=== PATIENT | male | born 1940 | race Caucasian/White ===

== ENCOUNTER → 2017-06-21 | Outpatient (CLI) | payer MEDICARE ==
[2017-06-21 09:40] LABS: Basophils # (A) 0.1 k/uL (0-0.2); Basophils % (A) 1 %; CH 31.4; CHCM 31.9; Eosinophils # (A) 0.2 k/uL (0-0.7); Eosinophils % (A) 4 %; HCT 51.5 % (39.0-53.0); HDW 2.35; HGB 15.6 gm/dL (13.0-17.5); Luc # (Auto) 0.19; Luc % (Auto) 3; Lymphocytes # (A) 2.3 k/uL (1.0-4.8); Lymphocytes % (A) 37 %; MCH 30.1 pg (25.0-35.0); MCHC 30.4 g/dL (31.0-37.0); Mean Platelet Volume 7.8; Monocytes # (A) 0.5 k/uL (0-1.0); Monocytes % (A) 7 %; Neutrophils % (A) 48 %; RDW 14.9 % (11.5-15.5); WBC 6.3 k/uL (3.8-10.6); WBC (Perox) 6.17
[2017-06-21 09:54] LABS: ALT 33 U/L (21-72); AST 28 U/L (17-59); Alkaline Phosphatase 74 U/L (38-126); Anion Gap 6 mmol/L; Blood Urea Nitrogen 23 mg/dL (9-20); Calcium 9.1 mg/dL (8.4-10.2); Carbon Dioxide 27 mmol/L (22-30); Chloride 109 mmol/L (98-107); Cholesterol 118 mg/dL (<200); Glucose 111 mg/dL (74-99); HDL Cholesterol 46 mg/dL (40-60); Non-African American GFR(MDRD) >60 (>60 ml/min/1.73 sqM); Potassium 4.8 mmol/L (3.5-5.1); Sodium 142 mmol/L (137-145); Total Bilirubin 0.5 mg/dL (0.2-1.3); Total Protein 6.9 g/dL (6.3-8.2)
== END | disposition home or self-care (01) ==
LOC: LABWHC1 09:17
PROVIDERS: ATTEND Internal Medicine
DX: Z00.00 Encounter for general adult medical examination without abnormal findings (principal); E78.5 Hyperlipidemia, unspecified; I10 Essential (primary) hypertension; Z12.5 Encounter for screening for malignant neoplasm of prostate
CPT/HCPCS: 84439; 80061; 80053; 84443; 85025; 36415; G0103

== ENCOUNTER 2018-08-29 09:58 | Emergency (ER) | payer MEDICARE ==
--- NOTE | 2018-08-29 11:38 | XR ---
EXAMINATION TYPE: XR chest 2V DATE OF EXAM: 08/29/2018 COMPARISON: NONE HISTORY: Shortness of breath TECHNIQUE: Frontal and lateral views of the chest are obtained. FINDINGS: Scattered senescent parenchymal changes noted. No evidence for infiltrate. No evidence for atelectasis. Heart size is stable. Mediastinal structures are stable and grossly unremarkable. No evidence for hilar prominence. Degenerative changes dorsal spine. IMPRESSION: 1. No evidence for acute pulmonary disease.
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
--- NOTE | 2018-08-29 12:31 | XR ---
EXAMINATION TYPE: XR lumbar spine 2 or 3V DATE OF EXAM: 08/29/2018 CLINICAL HISTORY: pain TECHNIQUE: Three views of the lumbar spine are submitted. COMPARISON: None. FINDINGS: There are 5 lumbar type vertebral bodies identified. There is curvature noted convex to the left. Th e lumbar spine shows satisfactory alignment without evidence of acute fracture. Vertebral body height s are within normal limits. Severe degenerative disc space narrowing and multilevel vacuum disc and endplate sclerosis. Grade 1 anterolisthesis L5 on S1. Severe facet joint arthropathy. The overlying soft tissue appears unremarkable. IMPRESSION: No acute fracture seen. Severe multilevel degenerative disc disease. Grade 1 anterolisthesis L5 on S1 . ICD 10 NO FRACTURE, INITIAL EVALUATION
[2018-08-29 12:54] VITALS: BP 145/78; PULSE 77; RESP 18; TEMP 98
== END 2018-08-29 12:54 | disposition home or self-care (01) ==
LOC: EC 09:58
DX: M54.5 Low back pain (principal); R07.81 Pleurodynia; M43.16 Spondylolisthesis, lumbar region; M51.36 Other intervertebral disc degeneration, lumbar region; K21.9 Gastro-esophageal reflux disease without esophagitis; E78.5 Hyperlipidemia, unspecified; I10 Essential (primary) hypertension; Z79.899 Other long term (current) drug therapy; Z79.82 Long term (current) use of aspirin; Z87.891 Personal history of nicotine dependence; V86.92XA Unspecified occupant of snowmobile injured in nontraffic accident, initial encounter; Y93.29 Activity, other involving ice and snow
CPT/HCPCS: 71046; 72100; 99283

== ENCOUNTER → 2019-05-04 | Outpatient (CLI) | payer MEDICARE ==
--- NOTE | 2019-05-05 08:10 | CT ---
EXAMINATION TYPE: CT abdomen pelvis w con DATE OF EXAM: 05/04/2019 COMPARISON: 02/09/2011 INDICATION: Gross hematuria. DLP: 1568.6 mGycm, Automated exposure control for dose reduction was used. CONTRAST: 100 mL of Isovue M300. Study performed with Oral Contrast TECHNIQUE: Axial images were obtained from above the diaphragm to the pubic rami in the axial plane a t 5 mm thick sections. Reconstructed images are reviewed on the computer in the coronal plane. FINDINGS: Limited CT sections are obtained the lung bases. The lung bases are clear. CT ABDOMEN: Liver: Normal Spleen: Spleen appears small. Correlate with surgical history. This could be residual spleen or splen ule. Pancreas: Normal Adrenal glands: The adrenal glands are normal. Gallbladder: Surgically absent. Kidneys: No masses are evident. No hydronephrosis is present. There is a 1.1 cm cyst in the posteri or superior right kidney measuring 24 Hounsfield units. There is an exophytic cyst on the anterior la teral right mid kidney measuring 1.2 cm and 16 Hounsfield units. Large cysts or on the inferior poles of the bilateral kidneys. On the right this is in the posterior lateral region and measures 4.3 cm a nd 5 Hounsfield units. The large cyst at the inferior pole of the left kidney measures 10 cm and 12 H ounsfield units. Delayed images were obtained through the kidneys. Couple of additional tiny cortica l renal cyst may be present. Aorta: Vascular calcification is within the aorta. Inferior vena cava: Normal. CT PELVIS: Loops of bowel within the abdomen and pelvis are normal. Multiple diverticuli are through the sig moid colon. Diverticuli are within the distal descending colon. Density adjacent to the ascending col on may be an additional splenule, series 3 image 42. Some thickening of the report descending colon s igmoid colon junction may be present. No suspicious adjacent inflammatory changes to suggest acute di verticulitis is evident. Appendix: Not identified. No suspicious inflammatory changes or dilated tubular structures to suggest acute appendicitis is evident. Urinary bladder: Decompressed with limited evaluation. Genitourinary structures: Penile prosthesis is evident. Osseous structures: No suspicious lytic or sclerotic lesions. Degenerative disc changes and scoliosis of the lumbar spine. IMPRESSIONS: 1. Diverticulosis without acute diverticulitis. Some thickening of the descending colon sigmoid colo n may be present. This area is incompletely distended with contrast which limits the evaluation. Cons ider colonoscopy. 2. No suspicious abnormality to account for hematuria. 3. Bilateral renal cysts. 4. There appear to be scattered splenule is within the left upper quadrant of the abdomen. Correlate with the patient's history.
== END ==
LOC: RADCTMAIN 15:34
PROVIDERS: ATTEND Urology
DX: R31.0 Gross hematuria (principal); N28.1 Cyst of kidney, acquired; K57.30 Diverticulosis of large intestine without perforation or abscess without bleeding; R93.3 Abnormal findings on diagnostic imaging of other parts of digestive tract; R93.5 Abnormal findings on diagnostic imaging of other abdominal regions, including retroperitoneum
CPT/HCPCS: 82565; 84520; 74177; 36415; Q9967 ×2

== ENCOUNTER → 2019-07-24 | Outpatient (CLI) | payer MEDICARE ==
--- NOTE | 2019-07-24 15:50 | XR ---
Lumbosacral spine HISTORY: Low back pain, hip pain 5 views of the lumbosacral spine Correlation to prior lumbar spine 08/29/2018 There is not a significant interval change. Levoscoliosis is present centered at approximately L2-3. There is multilevel spondylosis. Bone mineralization is reduced. No evident spondylolysis. There is a nterolisthesis grade 1 L5-S1 similar to prior exam. Sclerosis present in the posterior elements rubio tible with facet arthropathy. Loss of disc height present at the intervertebral levels, there is asso ciated vacuum phenomenon at multiple levels. Retrolisthesis grade 1 L3-4, L1-2. Atherosclerotic calci fications present within the aorta. IMPRESSION: Degenerative disc disease and facet arthropathy, scoliosis.
--- NOTE | 2019-07-24 15:51 | XR ---
Left hip HISTORY: Pain 2 views of the left hip There is mild joint space loss present. Alignment is maintained. Bone mineralization mildly reduced. Some prominence present along the femoral neck. Vascular calcifications are present. IMPRESSION: Mild osteoarthritic change, correlate to exclude femoral acetabular impingement
== END | disposition home or self-care (01) ==
LOC: RADXRMAIN 14:23
PROVIDERS: ATTEND Internal Medicine
DX: M51.37 Other intervertebral disc degeneration, lumbosacral region (principal); M46.97 Unspecified inflammatory spondylopathy, lumbosacral region; M41.86 Other forms of scoliosis, lumbar region
CPT/HCPCS: 72110; 73502

== ENCOUNTER → 2020-01-30 | Outpatient (CLI) | payer MEDICARE ==
--- NOTE | 2020-01-31 16:19 | MR ---
EXAMINATION TYPE: MR lumbar spine wo con DATE OF EXAM: 01/30/2020 COMPARISON: 02/11/2015 HISTORY: Low Back Pain, Spondylosis, Radiculopathy Multiplanar multiecho imaging of the lumbar spine was performed without contrast. FINDINGS: Lumbar vertebra have fairly normal alignment. There is degenerative disc space narrowing throughout t he lumbar spine and more severe at L2-3 and L3-4. There is hypertrophic spurring of the endplates. Th ere is developmentally adequate spinal canal. There is some hypertrophic facet arthropathy and mild l ateral recess stenosis at L4-5. There is no lumbar paraspinal mass. There is narrowing of the neural foramina at L3-4 L4-5 due to disc space narrowing and facet arthropathy. Posterior elements are inta ct. There is some mild anterior wedging of the partly visualized T11 vertebral body on the inferior endpl ate. IMPRESSION: Multilevel spondylotic changes. Multilevel neural foraminal narrowing due to facet arthropathy and di sc space narrowing. No fracture seen. There is a new mild T11 compression fracture compared to old ex am. No significant edema seen to suggest an acute fracture. Lumbar spine appears not significantly di fferent than old exam.
== END | disposition home or self-care (01) ==
LOC: RADMRIMAIN 10:31
PROVIDERS: ATTEND Physical Medicine & Rehabilitation
DX: M47.26 Other spondylosis with radiculopathy, lumbar region (principal); M47.817 Spondylosis without myelopathy or radiculopathy, lumbosacral region; M51.17 Intervertebral disc disorders with radiculopathy, lumbosacral region; M43.16 Spondylolisthesis, lumbar region; M70.62 Trochanteric bursitis, left hip; M70.61 Trochanteric bursitis, right hip; M54.2 Cervicalgia; M48.061 Spinal stenosis, lumbar region without neurogenic claudication
CPT/HCPCS: 72148

== ENCOUNTER → 2020-05-13 | Outpatient (CLI) | payer MEDICARE ==
--- NOTE | 2020-05-13 17:58 | CT ---
EXAMINATION TYPE: CT abdomen wo/w con DATE OF EXAM: 05/13/2020 COMPARISON: 05/04/2019 HISTORY: Renal cysts CT DLP: 1910.3 mGycm Automated exposure control for dose reduction was used. TECHNIQUE: Helical acquisition of images was performed from the lung bases through the top of iliac crest to include entire abdomen. CONTRAST: Performed with Oral Contrast and without and with IV Contrast, patient injected with 100 mL of Isovue 300. FINDINGS: LUNG BASES: No significant abnormality is appreciated. LIVER/GB: Postcholecystectomy changes noted. PANCREAS: No significant abnormality is seen. SPLEEN: No significant abnormality is seen. ADRENALS: No significant abnormality is seen. KIDNEYS: There is a 1.1 cm echodensity in the posterior superior right kidney measuring 24 Hounsfield units. There is an exophytic cyst on the anterior lateral right mid kidney measuring 1.2 cm and 16 H ounsfield units. Large cysts or on the inferior poles of the bilateral kidneys. On the right this is in the posterior lateral region and measures 4.3 cm and 5 Hounsfield units. The large cyst at the inf erior pole of the left kidney measures 10 cm and 12 Hounsfield units. Delayed images were obtained th rough the kidneys. Couple of additional tiny cortical renal cyst may be present. No hydronephrosis or nephrolithiasis. BOWEL: Diverticulosis. No CT evidence of diverticulitis.. LYMPH NODES: No significant abnormality is seen. OSSEOUS STRUCTURES: Hypertrophic and degenerative changes of the spine are noted. Scoliotic curvatur e. Canal stenosis and facet arthropathy with foraminal encroachment suspected at multiple levels. Chr onic appearing wedge deformity of T11. OTHER: There are numerous hypodensities seen throughout the mesentery the anterior abdomen. There are seen dating back to 2010 therefore likely benign could represent splenosis. Small fat-containing per iumbilical hernia noted. IMPRESSION: 1. Multiple bilateral renal lesions similar in size the prior exam. The 2 largest appear to measure l ess than 15 Hounsfield units compatible with simple cysts. The exophytic lesion involving the lateral margin of the right kidney measures 27 Hounsfield units on postcontrast imaging and measures 12 Houn sfield units on precontrast imaging. Degree of enhancement not excluded. However, lesion appears to b e present dating back to 2010 and therefore likely is benign. In size is unchanged from 2010. 2. Splenosis.
== END | disposition home or self-care (01) ==
LOC: RADCTMAIN 15:47
PROVIDERS: ATTEND Urology
DX: N28.9 Disorder of kidney and ureter, unspecified (principal); D73.89 Other diseases of spleen
CPT/HCPCS: 82565; 84520; 74170; 36415; Q9967

== ENCOUNTER 2021-03-14 06:03 | Day surgery (SDC) | payer MEDICARE ==
[2021-03-13 10:49] VITALS: BMI 31.7
[2021-03-14] MEDS ORDERED: LACTATED RINGERS 1,000 ML IV ONE (06:46)
[2021-03-14 06:50] VITALS: RESP 16; TEMP 97.9
[2021-03-14] MEDS ORDERED: methylPREDNISolone ACETATE 40 MG/ML 1 ML VIAL ONE (07:02)
[2021-03-14] MEDS ORDERED: IOPAMIDOL M200 10 ML VIAL ONE (07:02)
[2021-03-14] MEDS ORDERED: fentaNYL (PF) 50 MCG/ML 2 ML AMP ONE (07:02)
[2021-03-14] MEDS ORDERED: MIDAZOLAM 2 MG/2 ML VIAL ONE (07:02)
--- NOTE | 2021-03-14 07:13 | P.PCN ---
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 3-lumbar radiculopathy POSTOPERATIVE DIAGNOSIS: Same as preop diagnosis. PROCEDURE 1. Lumbar epidural steroid injection under fluoroscopic guidance at the L5-S1 level. (Fluoroscopy imaging was available in radiology department) 2. Lumbar epidurogram. ANESTHESIA: Local with 1% lidocaine 3 ml and , moderate sedation with intravenous Versed 1 mg ,and fentanyle 50 Mcg EBL: Minimal PROCEDURE INDICATION: The patient with low back pain and radiculitis symptoms unresponsive to conservative treatment. Fluoroscopy was used to optimize visualization of the needle placement and to maximize safety. PROCEDURE DESCRIPTION / TECHNIQUE: The patient was seen and identified in the preoperative area. Risks, benefits, complications including but not limited to infections ,bleeding ,allergic reaction to the medications ,nerve damage and not complete pain releife , and alternatives were discussed with the patient. The patient agreed to proceed with the procedure and signed the consent. IV was started, and vital signs were stable. Patient was taken to the OR and time out was completed. The patient was placed in the prone position on procedure table and a pillow was placed under the abdomen to reduce lumbar lordosis. The lumbosacral area was prepped and draped in the usual sterile fashion.ere closely monitored during the procedure. Conscious sedation was used during the procedure to decrease patients anxiety. Vital signs was monitered during the entire procedure. Using anterior-posterior fluoroscopy, the L5-S1 interlaminar space was identified and the skin over this site was marked and then infiltrated with 1% lidocaine subcutaneously. Subsequently, a 20-gauge Tuohy epidural needle was inserted and advanced toward the epidural space using the ``Loss of resistance technique and guided by AP and lateral fluoroscopy. The correct needle position in the epidural space was verified with the injection of 2 mL of the water soluble contrast dye Isovue 200 contrast and observing an excellent epidurogram with the epidural spread of the dye, after negative aspiration for blood and CSF and in the absence of paresthesias. Again after negative aspiration, a 6 ml mixture containing 60 mg of Depo-medrol , and 2 ml of preservative free Normal Saline, and 2 ml of preservative free lidocaine 1% solution was injected and a washout of epidurogram was seen. Needle was withdrawn intact, skin was cleansed, and bandages were applied. COMPLICATIONS: None DISPOSITION / PLANS: The patient was placed in a supine position and transferred to the recovery area in a stable condition for observation. There was no evidence of lower extremity motor or sensory deficit after the procedure. Patient was discharged from the recovery room after meeting discharge criteria. Home discharge instructions were given to the patient by the staff. The patient was reexamined prior to discharge. The patient will schedule a follow up in the clinic in 2-4 weeks.
[2021-03-14] MEDS ORDERED: IV FLUID CONTINUATION 1,000 ML IV ONE (07:17)
[2021-03-14 07:34] VITALS: BP 120/69; PULSE 63
--- NOTE | 2021-03-14 10:04 | FL ---
Fluoroscopy HISTORY: Pain 2 seconds fluoroscopy time supplied to the referring clinician. 1 intraoperative C-arm images docume nt the procedure. See dictated report from anesthesia.
== END 2021-03-14 07:49 | disposition home or self-care (01) ==
LOC: ORPAIN 06:03
PROVIDERS: ATTEND Specialist
DX: M47.26 Other spondylosis with radiculopathy, lumbar region (principal); M51.16 Intervertebral disc disorders with radiculopathy, lumbar region; M43.17 Spondylolisthesis, lumbosacral region; I10 Essential (primary) hypertension
CPT/HCPCS: 62323; J2250; J1030; J3010; Q9966

== ENCOUNTER 2021-04-13 08:53 | Day surgery (SDC) | payer MEDICARE ==
[2021-04-07 11:10] VITALS: BMI 30.7
[~2021-04-13 08:53] MED LIST: LACTATED RINGERS 1,000 ML IV SCH
[2021-04-13 09:14] VITALS: TEMP 98.1
[2021-04-13] MEDS ORDERED: methylPREDNISolone ACETATE 40 MG/ML 1 ML VIAL ONE (09:28)
[2021-04-13] MEDS ORDERED: IOPAMIDOL M200 10 ML VIAL ONE (09:28)
--- NOTE | 2021-04-13 09:38 | P.PCN ---
Date of Procedure: 04/13/21 Procedure(s) Performed: PREOPERATIVE DIAGNOSIS: 1- Lumbar Degenerative Disc Diseases 2-Lumbar spondylosis with Facet arthropathy without myelopathy. 3-lumbar radiculopathy POSTOPERATIVE DIAGNOSIS: Same as preop diagnosis. PROCEDURE 1. Lumbar epidural steroid injection under fluoroscopic guidance at the L5-S1 level. (Fluoroscopy imaging was available in radiology department) 2. Lumbar epidurogram. ANESTHESIA: Local with 1% lidocaine 3 ml only. EBL: Minimal PROCEDURE INDICATION: The patient with low back pain and radiculitis symptoms unresponsive to conservative treatment. Fluoroscopy was used to optimize visualization of the needle placement and to maximize safety. PROCEDURE DESCRIPTION / TECHNIQUE: The patient was seen and identified in the preoperative area. Risks, benefits, complications including but not limited to infections ,bleeding ,allergic reaction to the medications ,nerve damage and not complete pain releife , and alternatives were discussed with the patient. The patient agreed to proceed with the procedure and signed the consent. IV was started, and vital signs were stable. Patient was taken to the OR and time out was completed. The patient was placed in the prone position on procedure table and a pillow was placed under the abdomen to reduce lumbar lordosis. The lumbosacral area was prepped and draped in the usual sterile fashion.ere closely monitored during the procedure. Vital signs was monitered during the entire procedure. Using anterior-posterior fluoroscopy, the L5-S1 interlaminar space was identified and the skin over this site was marked and then infiltrated with 1% lidocaine subcutaneously. Subsequently, a 20-gauge Tuohy epidural needle was inserted and advanced toward the epidural space using the ``Loss of resistance technique and guided by AP and lateral fluoroscopy. The correct needle position in the epidural space was verified with the injection of 2 mL of the water soluble contrast dye Isovue 200 contrast and observing an excellent epidurogram with the epidural spread of the dye, after negative aspiration for blood and CSF and in the absence of paresthesias. Again after negative aspiration, a 6 ml mixture containing 60 mg of Depo-medrol , and 2 ml of preservative free Normal Saline, and 2 ml of preservative free lidocaine 1% solution was injected and a washout of epidurogram was seen. Needle was withdrawn intact, skin was cleansed, and bandages were applied. COMPLICATIONS: None DISPOSITION / PLANS: The patient was placed in a supine position and transferred to the recovery area in a stable condition for observation. There was no evidence of lower extremity motor or sensory deficit after the procedure. Patient was discharged from the recovery room after meeting discharge criteria. Home discharge instructions were given to the patient by the staff. The patient was reexamined prior to discharge. The patient will schedule a follow up in the clinic in 2-4 weeks.
[2021-04-13 09:57] VITALS: BP 126/62; PULSE 59; RESP 17
--- NOTE | 2021-04-13 10:01 | FL ---
EXAMINATION TYPE: FL guided pain mgmt statistic DATE OF EXAM: 04/13/2021 HISTORY: Fluoroscopy time 2 seconds of fluoroscopy provided. IMPRESSION: 1. Fluoroscopy time.
== END 2021-04-13 10:07 | disposition home or self-care (01) ==
LOC: ORPAIN 08:53
PROVIDERS: ATTEND Specialist
DX: M51.16 Intervertebral disc disorders with radiculopathy, lumbar region (principal); M47.26 Other spondylosis with radiculopathy, lumbar region
CPT/HCPCS: 62323; J1030; Q9966

== ENCOUNTER → 2021-05-10 | Outpatient (CLI) | payer MEDICARE ==
[2021-05-10 10:58] VITALS: BP 135/72; PULSE 58; RESP 18; TEMP 98.1
--- NOTE | 2021-05-10 11:09 | P.PN ---
Subjective Progress Note Date: 05/10/21 This is a follow-up visit for this 80 years old male with a chronic history of low back pain,he is diagnosed with lumbar degenerative disc disease, lumbar, spondylosis with lumbar facet arthropathy, status post lumbar epidural steroid injections 2 , she reported that he got 80% improvement of his pain, he denies any motor or sensory deficit, he denies any fever or night sweats, is very satisfied with the result of the treatment, patient will follow up with Dr. Pastor , he will follow up with the pain clinic when necessary Objective - Vital Signs Vital signs: Vital Signs Temp 98.1 F 05/10/21 10:38 Pulse 58 L 05/10/21 10:38 Resp 18 05/10/21 10:38 BP 135/72 05/10/21 10:38 Pulse Ox 95 05/10/21 10:38
== END ==
LOC: PNWHC3 09:57
PROVIDERS: ATTEND Specialist
DX: M51.36 Other intervertebral disc degeneration, lumbar region (principal); M47.816 Spondylosis without myelopathy or radiculopathy, lumbar region; G89.29 Other chronic pain; Z87.891 Personal history of nicotine dependence
CPT/HCPCS: 99211

== ENCOUNTER → 2021-08-29 | Day surgery (SDC) | payer MEDICARE ==
[2021-08-24 15:59] VITALS: BMI 31.0
[~2021-08-29] MED LIST changes: +IOPAMIDOL M200 10 ML VIAL ONE; +methylPREDNISolone ACETATE 40 MG/ML 1 ML VIAL ONE
[2021-08-29 08:45] VITALS: TEMP 97.8
--- NOTE | 2021-08-29 09:04 | P.PCN ---
Date of Procedure: 08/29/21 Procedure(s) Performed: PREOPERATIVE DIAGNOSIS: 1- Lumbar Degenerative Disc Diseases 2-Lumbar spondylosis with Facet arthropathy without myelopathy. 3-lumbar radiculopathy POSTOPERATIVE DIAGNOSIS: Same as preop diagnosis. PROCEDURE 1. Lumbar epidural steroid injection under fluoroscopic guidance at the L5-S1 level. (Fluoroscopy imaging was available in radiology department) 2. Lumbar epidurogram. ANESTHESIA: Local with 1% lidocaine 3 ml only. EBL: Minimal PROCEDURE INDICATION: The patient with low back pain and radiculitis symptoms unresponsive to conservative treatment. Fluoroscopy was used to optimize visualization of the needle placement and to maximize safety. PROCEDURE DESCRIPTION / TECHNIQUE: The patient was seen and identified in the preoperative area. Risks, benefits, complications including but not limited to infections ,bleeding ,allergic reaction to the medications ,nerve damage and not complete pain releife , and alternatives were discussed with the patient. The patient agreed to proceed with the procedure and signed the consent. IV was started, and vital signs were stable. Patient was taken to the OR and time out was completed. The patient was placed in the prone position on procedure table and a pillow was placed under the abdomen to reduce lumbar lordosis. The lumbosacral area was prepped and draped in the usual sterile fashion.ere closely monitored during the procedure. Vital signs was monitered during the entire procedure. Using anterior-posterior fluoroscopy, the L5-S1 interlaminar space was identified and the skin over this site was marked and then infiltrated with 1% lidocaine subcutaneously. Subsequently, a 20-gauge Tuohy epidural needle was inserted and advanced toward the epidural space using the ``Loss of resistance technique and guided by AP and lateral fluoroscopy. The correct needle position in the epidural space was verified with the injection of 2 mL of the water soluble contrast dye Isovue 200 contrast and observing an excellent epidurogram with the epidural spread of the dye, after negative aspiration for blood and CSF and in the absence of paresthesias. Again after negative aspiration, a 6 ml mixture containing 60 mg of Depo-medrol , and 2 ml of preservative free Normal Saline, and 2 ml of preservative free lidocaine 1% solution was injected and a washout of epidurogram was seen. Needle was withdrawn intact, skin was cleansed, and bandages were applied. COMPLICATIONS: None DISPOSITION / PLANS: The patient was placed in a supine position and transferred to the recovery area in a stable condition for observation. There was no evidence of lower extremity motor or sensory deficit after the procedure. Patient was discharged from the recovery room after meeting discharge criteria. Home discharge instructions were given to the patient by the staff. The patient was reexamined prior to discharge. The patient will schedule a follow up in the clinic in 2-4 weeks.
[2021-08-29 09:12] VITALS: RESP 20
[2021-08-29 09:24] VITALS: BP 142/82; PULSE 78
--- NOTE | 2021-08-29 09:24 | FL ---
EXAMINATION TYPE: FL guided pain mgmt statistic DATE OF EXAM: 08/29/2021 HISTORY: Fluoroscopy time 4 seconds of fluoroscopy provided. IMPRESSION: 1. Fluoroscopy time.
== END ==
LOC: ORPAIN 08:20
PROVIDERS: ATTEND Specialist
DX: M51.36 Other intervertebral disc degeneration, lumbar region (principal); M47.816 Spondylosis without myelopathy or radiculopathy, lumbar region; M54.16 Radiculopathy, lumbar region
CPT/HCPCS: 62323; J1030; Q9966

== ENCOUNTER → 2021-10-02 | Outpatient (CLI) | payer MEDICARE ==
[2021-10-02 12:59] VITALS: BP 113/68; PULSE 63; RESP 18; TEMP 97.6
--- NOTE | 2021-10-02 13:12 | P.PN ---
Subjective Progress Note Date: 10/02/21 Principal diagnosis: A 81 yr old male with a history of severe and chronic low back pain secondary to lumbar degenerative disc diseases and lumbar spondylosis with facet arthropathy presents today for evaluation status post LESI L5-S1 #3. Patient states he obtained 60% pain relief status post procedure. Patient complains of pain in his right hip joint, 5 out of 10 in intensity, achy, dull in character and exacerbated with weightbearing. Denies radiation of pain. Pain is alleviated with OTC medications, physical therapy for years ago, repositioning and rest. Interventional pain procedures completed include LESI L5-S1 #3 Patient is currently on OTC Tylenol and Motrin Patient denies any side effects of the medication(s), denies excessive drowsiness or sleepiness, denies suicidal ideation and reports that the current pain medication is helping to control the pain and improve activities of daily living. Patient denies any motor or sensory deficits. Patient denies any fever or night sweats, denies any change in the bowel movements or urination. Physical Examination: -Constitutional: Cooperative. Not in acute distress . -HEENT: Neck is supple. No lymphadenopathy. No thyromegaly. Normal thyroid size. Eyes: No ptosis , no icterus, no photophobia. ENT: No auditory deficits. Normal oropharynx. No Thrush. - Respiratory: Chest clear to auscultations bilaterally. No wheezing. No rhonchi. - Cardiovascular: Regular rate and rhythm. S1 / S2 , no S3 , no S4. - Gastrointestinal: Abdomen soft no tenderness. Bowel sounds positive in all four quadrants. No organomegaly. - Genitourinary: Deferred. - Neurologic: Cranial nerve II to XII intact. No focal neurological deficits. - Psychatric: Alert & oriented x 3. Matching mood & appropriate affect. Judgment and insight intact. - Lymphatic: No Lymphadenopathy. - Musculoskeletal: Cervical spine: Muscle bulk/ tone/ strength in the bilateral upper extremities normal. Facet loading test cervical area positive. Lumbar spine: Motor bulk/ tone/ strength lower extremities , thigh and legs : 5/5 Deep tendon reflexes : Normal Knee Jerk. Normal Ankle Jerk . Vertebral body tenderness to palpation over Lumbar Facet Loading Test positive Straight Leg Raise: positive at 30 degrees right side/ left side Gaenslen's Test positive Tenderness on palpation on the R ischiofemoral joint Sacral spine : Severe tenderness over the Sacroiliac joint: right side / left side Range of motion: Flexion of the lumbar spine <60 degrees Range of motion: Extension of the lumbar spine <20 degrees Gaenslen's Test positive Flaco test: positive right side / left side Assessment and plan: Chronic low back pain secondary to lumbar degenerative disc disease , lumbar spondylosis with facet arthropathy without myelopathy, right hip OA Recommendation of right intra-articular injection. May need a series of injections to obtain sufficient pain relief. Risks, benefits of procedure discussed and patient verbalized understanding. Denies anticoagulants use. Denies medical history diabetes. All patient questions answered MAPS reviewed and it was appropriate. I have spent 31 minutes on patient care today. Dr Sotelo was available by phone for the evaluation of this patient. The time was used to review the medical records including relevant urine studies and Prescription history (MAPs), review of the available imaging, evaluation and examination of the patient, coordination of care with the medical staff and if applicable referring physicians, as well as creation of the medical record Objective - Vital Signs Vital signs: Vital Signs Temp 97.6 F 10/02/21 12:50 Pulse 63 10/02/21 12:50 Resp 18 10/02/21 12:50 BP 113/68 10/02/21 12:50 Pulse Ox 90 L 10/02/21 12:50 PQRS Measure Charge Sheet Mode of Arrival: Ambulatory - Pain Location Lower Back Non-Pharmacological Interventions: Massage, Physical Therapy Pharmacological Interventions: PRN Medication PQRS Narrative: Smoking Status Former smoker Blood Pressure 113/68 Pain Intensity [Lower Back] 5 Scale Used Numeric (1 - 10) Hx Alcohol Use (MH) No Home Medications: Ambulatory Orders Simvastatin 80 mg PO HS 03/22/15 Aspirin EC [Ecotrin Low Dose] 81 mg PO HS 08/29/18 Losartan Potassium [Cozaar] 25 mg PO DAILY 08/29/18 Metoprolol Succinate (ER) [Toprol Xl] 12.5 mg PO BID 08/29/18 Pantoprazole [Protonix] 40 mg PO DAILY 08/29/18 Gabapentin [Neurontin] 300 mg PO BID PRN 09/29/21
== END ==
LOC: PNWHC3 12:28
PROVIDERS: ATTEND Physician Assistant Medical
DX: M43.17 Spondylolisthesis, lumbosacral region (principal); M51.36 Other intervertebral disc degeneration, lumbar region; M47.816 Spondylosis without myelopathy or radiculopathy, lumbar region; M16.11 Unilateral primary osteoarthritis, right hip; G89.29 Other chronic pain; Z87.891 Personal history of nicotine dependence
CPT/HCPCS: 99211

== ENCOUNTER 2021-11-02 08:17 | Day surgery (SDC) | payer MEDICARE ==
[2021-10-31 11:08] VITALS: BMI 31.4
[2021-11-02 08:47] VITALS: TEMP 97.8
[2021-11-02] MEDS ORDERED: IOPAMIDOL M200 10 ML VIAL ONE (09:12)
[2021-11-02] MEDS ORDERED: methylPREDNISolone ACETATE 40 MG/ML 1 ML VIAL ONE (09:12)
[2021-11-02] MEDS ORDERED: ROPIVACAINE 5MG/ML 20ML VIAL ONE (09:12)
--- NOTE | 2021-11-02 09:23 | P.PCN ---
Date of Procedure: 11/02/21 Description of Procedure: Preoperative diagnoses: 1. Right hip osteoarthritis Postoperative diagnoses: 1. Right hip osteoporosis Procedure: Right hip intra-articular steroid injection with fluoroscopy Anesthesia: Lidocaine 1% Description of the procedure: Patient was seen and identified in the preoperative holding area, risk and benefits, complications ,and alternatives of the procedure were discussed with the patient and patient agreed with the preceding, patient signed the consent and IV was started and vital signs were monitored throughout the procedure and it was stable. The patient was taken to the operating room and placed in supine position the groin area was prepped with chlorhexidine 3 and draped with the standard fashion. Local anesthetic was used with lidocaine 1% then using 25 -gauge needle, under direct fluoroscopy and anterior posterior image of the hip joint was ascertained. A 22-gauge Quincke needle was then advanced to the femoral neck until contact with bone was made. After negative aspiration for blood, 3 mL of Omnipaque was then injected to confirm placement of needle into the joint capsule. Once correct position was confirmed and after negative aspiration for blood, a solution consisting of 5 ML's of 0.5% Marcaine with 40 mg/1 mL of Kenalog was administered. A washout image was then obtained to confirm adequate spread within the joint capsule. Needle was removed, and a Band-Aid was placed. Patient tolerated procedure well with no complications Disposition: We'll see patient in clinic in 4 -8 weeks' time to assess efficacy of right hip injection as his source of right leg pain. If the patient does not improve with this hip injection, we should trial a right-sided lumbar transforaminal epidural steroid injection at L3 4 or L4-L5
[2021-11-02 09:30] VITALS: BP 147/76; PULSE 66; RESP 16
--- NOTE | 2021-11-02 10:09 | FL ---
Fluoroscopy HISTORY: Pain 3 seconds fluoroscopy time supplied to the referring clinician. 1 intraoperative C-arm images docume nt the procedure. See dictated report from anesthesia.
== END 2021-11-02 09:40 | disposition home or self-care (01) ==
LOC: ORPAIN 08:17
PROVIDERS: ATTEND Hospitalist
DX: M16.11 Unilateral primary osteoarthritis, right hip (principal)
CPT/HCPCS: 20610; J1030; Q9966; J2795

== ENCOUNTER → 2021-12-28 | Outpatient (CLI) | payer MEDICARE | LOC: PNWHC3 15:38 | PROVIDERS: ATTEND Specialist | DX: M25.551 Pain in right hip (principal); M54.50 Low back pain, unspecified; Z87.891 Personal history of nicotine dependence | CPT/HCPCS: 99211 ==

== ENCOUNTER 2022-02-01 12:36 | Day surgery (SDC) | payer MEDICARE ==
[~2022-02-01 12:36] MED LIST changes: -IOPAMIDOL M200 10 ML VIAL ONE; +LIDOCAINE 1% (10MG/ML) FOR IV START INTRADERMA PRN; -methylPREDNISolone ACETATE 40 MG/ML 1 ML VIAL ONE
[2022-02-01 13:27] VITALS: TEMP 97
[2022-02-01] MEDS ORDERED: ROPIVACAINE 5MG/ML 20ML VIAL ONE (13:55)
[2022-02-01] MEDS ORDERED: methylPREDNISolone ACETATE 40 MG/ML 1 ML VIAL ONE (13:55)
--- NOTE | 2022-02-01 14:03 | P.PCN ---
Date of Procedure: 02/01/22 Procedure(s) Performed: Pre- and Post-operative Diagnosis: Right-sided Trochanteric Bursitis Procedure: Right Greater Trochanteric Bursa injection under fluoroscopic guidance Anesthesia: Local ropivacaine 0.5% 2 mL for skin and subcu infiltration Complications: none Indications for Procedure: Patient had a history of greater trochanteric bursitis. Tried conservative therapy with minimal response. Came here for intervention procedure. Procedure and Findings: The patient was seen and examined. The written informed consent was obtained after explaining the risks, benefits and alternatives of the procedure to the patient. Patient agreed to proceed for the procedure sig caitlyn the informed consent. The patient was brought to the procedure room and was placed in supine position on the operating table. The anesthesia was started as mentioned above and monitoring was done with noninvasive blood pressure cuff, EKG and pulse oximetry. The skin preparation was done with ChloraPrep 1, and draping was done in usual sterile fashion. Sterile technique was observed throughout the procedure. Using fluoroscope in the AP view, the greater trochanter was identified. The middle of the greater trochanter was targeted for needle placement. 3 ml of 1% Lidocaine was injected with a 25 gauge needle to achieve adequate local anesthesia of the skin and subcutaneous tissue. then 22 gauge 3.5 inch needle was introduced and advanced into the target area under direct fluoroscopic guidance. A bony contact was felt and the needle was withdrawn for about two millimeters. A negative aspiration was confirmed. then total of 5ml solution containing depo-medrol 40 mg and 4 ml of 0.5% preservative-free ropivacaine was injected slowly. The needle was removed intact, area was cleaned and bandage was applied. The patient tolerated the procedure very well. Additional comments: None Disposition : The patient was transferred to the recovery room and remained stable until discharged home. The patient was given detailed discharge instructions for infection, bleeding, increased pain at the injection site, and was advised to seek immediate medical attention should significant side effects develop. Patient was routinely examined by RN before discharging home. The patient will be followed up with Pain Clinic within 3 weeks.
--- NOTE | 2022-02-01 14:13 | FL ---
EXAMINATION TYPE: FL guided pain mgmt statistic DATE OF EXAM: 02/01/2022 HISTORY: Fluoroscopy time 2 seconds of fluoroscopy provided. IMPRESSION: 1. Fluoroscopy time.
[2022-02-01 14:14] VITALS: RESP 20
[2022-02-01 14:26] VITALS: BP 130/75; PULSE 58
== END 2022-02-01 14:28 | disposition home or self-care (01) ==
LOC: ORPAIN 12:36
PROVIDERS: ATTEND Specialist
DX: M70.61 Trochanteric bursitis, right hip (principal); Y93.9 Activity, unspecified
CPT/HCPCS: 20610; J1030; J2795

== ENCOUNTER → 2022-03-14 | Outpatient (CLI) | payer MEDICARE ==
[2022-03-14 09:29] VITALS: BP 126/71; PULSE 63; RESP 18; TEMP 97.8
--- NOTE | 2022-03-14 15:25 | P.PAINPG ---
PQRS Measure Charge Sheet Comment: A 81 yr old male with a history of severe and chronic low back pain secondary to lumbar degenerative disc diseases and lumbar spondylosis with facet arthropathy presents today for evaluation s/p R Trochanteric Bursa injection. Pt states he experienced 70% pain relief x 4-5 weeks s/p procedure. Pain level is currently at 3/10 in intensity, constant, localized in the lower lumbar spine, sore and achy in character without radiation of pain. Pain is worse in the morning at 6/10. Pain is provoked w laying supine for periods of 1 hr or more. Pain is alleviated with PT 2-3 yrs ago which worsened pain when worked on by specific therapists, medications (Neurontin), repositioning and rest. Interventional pain procedures completed include LESI L5-S1 x 2, R Trochanteric Injection Patient is currently on Neurontin Patient denies any side effects of the medication(s), denies excessive drowsiness or sleepiness, denies suicidal ideation and reports that the current pain medication is helping to control the pain and improve activities of daily living. Patient denies any motor or sensory deficits. Patient denies any fever or night sweats, denies any change in the bowel movements or urination. Physical Examination: -Constitutional: Cooperative. Not in acute distress . - Neurologic: Cranial nerve II to XII intact. No focal neurological deficits. - Psychatric: Alert & oriented x 3. Matching mood & appropriate affect. Judgment and insight intact. - Musculoskeletal: Cervical spine: Muscle bulk/ tone/ strength in the bilateral upper extremities normal Vertebral body tenderness to palpation over Spurling test positive Distraction test positive Facet loading test positive Thoracic spine Muscle bulk / tone/ strength in the bilateral paraspinal muscles normal Vertebral body tender to palpation over Facet loading test positive Lumbar spine: Motor bulk/ tone/ strength lower extremities , thigh and legs : 5/5 Deep tendon reflexes : Normal Knee Jerk. Normal Ankle Jerk . Vertebral body tenderness to palpation over L5 Lumbar Facet Loading Test positive Straight Leg Raise: positive at 30 degrees right side/ left side Gaenslen's Test positive Sacral spine : Severe tenderness over the Sacroiliac joint: right side / left side Range of motion: Flexion of the lumbar spine <60 degrees Range of motion: Extension of the lumbar spine <20 degrees Gaenslen's Test positive Kenny's Test positive Flaco test: positive right side / left side Thigh Thrust Test Sacral Thrust Test Assessment and plan: Chronic low back pain secondary to lumbar degenerative disc disease , lumbar spondylosis with facet arthropathy without myelopathy Recommendation of LESI L5-S1. May need a series of injections, up to 3 within a 6 mo period, for optimal pain relief. Risks, benefits of procedure discussed and pt verbalized understanding. Denies anticoagulant use or medical history of diabetes. All patient questions answered MAPS reviewed and it was appropriate. I have spent less than 30 minutes on patient care today. Dr Sotelo was available by phone for the evaluation of this patient. The time was used to review the medical records including relevant urine studies and Prescription history (MAPs), review of the available imaging, evaluation and examination of the patient, coordination of care with the medical staff and if applicable referring physicians, as well as creation of the medical record PQRS Narrative: Smoking Status Former smoker Hx Alcohol Use (MH) No Home Medications: Ambulatory Orders Simvastatin 80 mg PO HS 03/22/15 Aspirin EC [Ecotrin Low Dose] 81 mg PO HS 08/29/18 Losartan Potassium [Cozaar] 25 mg PO DAILY 08/29/18 Metoprolol Succinate (ER) [Toprol Xl] 12.5 mg PO BID 08/29/18 Pantoprazole [Protonix] 40 mg PO DAILY 08/29/18 Gabapentin [Neurontin] 300 mg PO BID PRN 09/29/21 Controlled Substance Measures - Controlled Substance Measures Is patient prescribed a controlled substance at discharge?: No
== END ==
LOC: PNWHC3 08:58
PROVIDERS: ATTEND Specialist
DX: G89.29 Other chronic pain (principal); M51.36 Other intervertebral disc degeneration, lumbar region; M47.816 Spondylosis without myelopathy or radiculopathy, lumbar region; Z87.891 Personal history of nicotine dependence
CPT/HCPCS: 99211

== ENCOUNTER 2022-05-24 11:40 | Day surgery (SDC) | payer MEDICARE ==
[2022-05-24] MEDS ORDERED: LACTATED RINGERS 1,000 ML IV SCH (12:30)
[2022-05-24 12:47] VITALS: TEMP 98.3
[2022-05-24] MEDS ORDERED: IOPAMIDOL M200 10 ML VIAL ONE (12:59)
[2022-05-24] MEDS ORDERED: methylPREDNISolone ACETATE 40 MG/ML 1 ML VIAL ONE (12:59)
--- NOTE | 2022-05-24 13:09 | P.PCN ---
Date of Procedure: 05/24/22 Description of Procedure: . L5-S1 Epidural steroid injection under fluoroscopic guidance # 08/07 , 2. Lumbar epidurogram PREOPERATIVE DIAGNOSIS: Lumbar degenerative disc disease, and Lumbar radiculopathy. POSTOPERATIVE DIAGNOSIS: Lumbar degenerative disc disease, and Lumbar radiculopathy. SURGEON: Eliot Nugent ANESTHESIA: Local with 1% lidocaine, and IV sedation: none EBL: None. Specimen removed: None Fluoroscopic image: saved to electronic medical records PROCEDURE INDICATION: The patient had history of Lumbar degenerative disc disease and Lumbar radiculopathy. Failed to conservative therapy. Presented for epidural steroid injection. PROCEDURE DESCRIPTION: The patient was seen and identified in the preoperative area. Risks, benefits, complications, and alternatives were discussed with the patient. The patient agreed to proceed with the procedure and signed the consent. IV was started, and vital signs were stable. Patient was taken to the procedure area, and time out was completed. The patient was placed in the prone position on procedure table and a pillow was placed under the abdomen to reduce lumbar lordosis. The lumbosacral area was prepped and draped in the usual sterile fashion. Critical pause was taken. Vital signs were closely monitored during the procedure. Using anterior-posterior fluoroscopy, the L5-S1 interlaminar space was identified, and skin and deeper tissues were localized with 1% lidocaine. Using anterior-posterior fluoroscopy, lateral fluoroscopy, and [id number] technique, a 20 gauge 3.5 Tuohy epidural needle entered the epidural space. After negative aspiration of CSF and blood with no paresthesias,2 ml of [id number] contrast dye was injected and an excellent epidurogram was seen. Again after negative aspiration of CSF and blood with no paresthesias, 7 mL of block solution was injected into the epidural space. Block solution contained 40 mg of Depo-Medrol, and 6 mL of preservative-free normal saline. Needle was withdrawn intact, skin was cleansed, and bandages were applied. COMPLICATIONS: None. DISPOSITION / PLANS: The patient was placed in a supine position and transferred to the recovery area in a stable condition for observation. Patient was discharged from the recovery room after meeting discharge criteria. Home discharge instructions given to the patient by the staff. The patient was reexamined prior to discharge. The patient will schedule a follow up in the clinic in 4 weeks.
[2022-05-24 13:16] VITALS: RESP 16
[2022-05-24 13:27] VITALS: BP 136/67; PULSE 52
--- NOTE | 2022-05-24 13:28 | FL ---
Fluoroscopy HISTORY: Pain 2 seconds fluoroscopy time supplied to the referring clinician. 2 intraoperative C-arm images docume nt the procedure. See dictated report from anesthesia.
== END 2022-05-24 13:30 | disposition home or self-care (01) ==
LOC: ORPAIN 11:40
DX: M51.16 Intervertebral disc disorders with radiculopathy, lumbar region (principal)
CPT/HCPCS: 62323; J1030; Q9966

== ENCOUNTER → 2022-07-04 | Outpatient (CLI) | payer MEDICARE ==
[2022-07-04 10:59] VITALS: BP 129/74; PULSE 66; RESP 16; TEMP 97.9
--- NOTE | 2022-07-04 14:44 | P.PAINPG ---
Objective - Vital Signs Vital signs: Intake & Output 07/03/22 07/04/22 07/04/22 18:59 06:59 18:59 Weight 89.811 kg PQRS Measure Charge Sheet Comment: A 81 yr old male with a history of severe and chronic low back pain secondary to lumbar DDD and spondylosis with facet arthropathy without myelopathy presents today for evaluation s/p Yashira L5-S1. Pt states he experienced 20 % pain relief x 6 wks s/p procedure. Pain level is currently at 6/10 in intensity w prov ocation, constant, localized in the lower lumbar spine, achy in character w shooting towards the BL flanks. Pain is provoked by over activity. Pain is alleviated with medications (Neurontin), walking and rest. Interventional pain procedures completed include YASHIRA L5-S1 x2, R Trochanteric injection x2 Patient is currently on Neurontin Patient denies any side effects of the medication(s), denies excessive drowsiness or sleepiness, denies suicidal ideation and reports that the current pain medication is helping to control the pain and improve activities of daily living. Patient denies any motor or sensory deficits. Patient denies any fever or night sweats, denies any change in the bowel movements or urination. Physical Examination: -Constitutional: Cooperative. Not in acute distress . - Neurologic: Cranial nerve II to XII intact. No focal neurological deficits. - Psychatric: Alert & oriented x 3. Matching mood & appropriate affect. Judgment and insight intact. - Musculoskeletal: Cervical spine: Muscle bulk/ tone/ strength in the bilateral upper extremities normal Vertebral body tenderness to palpation over Spurling test positive Distraction test positive Facet loading test positive Thoracic spine Muscle bulk / tone/ strength in the bilateral paraspinal muscles normal Vertebral body tender to palpation over Facet loading test positive Lumbar spine: Motor bulk/ tone/ strength lower extremities , thigh and legs : 5/5 Deep tendon reflexes : Normal Knee Jerk. Normal Ankle Jerk . Vertebral body tenderness to palpation over Lumbar Facet Loading Test positive Straight Leg Raise: positive at 30 degrees right side/ left side Gaenslen's Test positive Sacral spine : Severe tenderness over the Sacroiliac joint: right side / left side Range of motion: Flexion of the lumbar spine <60 degrees Range of motion: Extension of the lumbar spine <20 degrees Gaenslen's Test positive Flaco test: positive right side / left side Thigh Thrust Test Sacral Thrust Test Assessment and plan: Chronic low back pain secondary to lumbar degenerative disc disease, spondylosis with facet arthropathy without myelopathy Pt did not have sufficient pain relief w prior YASHIRA. He states he will manage residual pain at home w home mgmt modalities while taking care of his and may return to our clinic on an as needed basis. He will think about the IPG device during this time. All patient questions answered I have spent less than 30 minutes on patient care today. Dr Sotelo was available by phone for the evaluation of this patient. The time was used to review the medical records including relevant urine studies and Prescription history (MAPs), review of the available imaging, evaluation and examination of the patient, coordination of care with the medical staff and if applicable referring physicians, as well as creation of the medical record PQRS Narrative: Smoking Status Former smoker Hx Alcohol Use (MH) No Home Medications: Ambulatory Orders Simvastatin 80 mg PO HS 03/22/15 Aspirin EC [Ecotrin Low Dose] 81 mg PO HS 08/29/18 Losartan Potassium [Cozaar] 25 mg PO DAILY 08/29/18 Metoprolol Succinate (ER) [Toprol Xl] 12.5 mg PO BID 08/29/18 Pantoprazole [Protonix] 40 mg PO DAILY 08/29/18 Gabapentin [Neurontin] 300 mg PO BID PRN 09/29/21 Controlled Substance Measures - Controlled Substance Measures Is patient prescribed a controlled substance at discharge?: No
== END ==
LOC: PNWHC3 10:25
PROVIDERS: ATTEND Specialist
DX: M47.816 Spondylosis without myelopathy or radiculopathy, lumbar region (principal); M51.36 Other intervertebral disc degeneration, lumbar region; G89.29 Other chronic pain; Z87.891 Personal history of nicotine dependence
CPT/HCPCS: 99211

== ENCOUNTER 2023-05-21 09:21 | Day surgery (SDC) | payer MEDICARE ==
[2023-05-15 14:01] VITALS: BMI 28.0
[~2023-05-21 09:21] MED LIST changes: -LIDOCAINE 1% (10MG/ML) FOR IV START INTRADERMA PRN
[2023-05-21 10:00] VITALS: TEMP 98.1
[2023-05-21] MEDS ORDERED: methylPREDNISolone ACETATE 40 MG/ML 1 ML VIAL ONE (10:09)
[2023-05-21] MEDS ORDERED: IOPAMIDOL M200 10 ML VIAL ONE (10:09)
--- NOTE | 2023-05-21 10:14 | P.PCN ---
Date of Procedure: 05/21/23 Procedure(s) Performed: PREOPERATIVE DIAGNOSIS: 1- Lumbar Degenerative Disc Diseases 2-Lumbar spondylosis with Facet arthropathy without myelopathy. POSTOPERATIVE DIAGNOSIS: 1-lumbar degenerative disc disease. 2-lumbar spondylosis with facet arthropathy without myelopathy.. PROCEDURE 1. Lumbar epidural steroid injection under fluoroscopic guidance at the L5-S1 level. (Fluoroscopy imaging was available in radiology department) 2. Lumbar epidurogram. ANESTHESIA: Lidocaine 1% 3 and then only. EBL: Minimal PROCEDURE INDICATION: The patient with low back pain and radiculitis symptoms unresponsive to conservative treatment. Fluoroscopy was used to optimize visualization of the needle placement and to maximize safety. PROCEDURE DESCRIPTION / TECHNIQUE: The patient was seen and identified in the preoperative area. Risks, benefits, complications including but not limited to infections ,bleeding ,allergic reaction to the medications ,nerve damage and not complete pain releife , and alternatives were discussed with the patient. The patient agreed to proceed with the procedure and signed the consent, and vital signs were stable. Patient was taken to the OR and time out was completed. The patient was placed in the prone position on procedure table and a pillow was placed under the abdomen to reduce lumbar lordosis. The lumbosacral area was prepped and draped in the usual sterile fashion.ere closely monitored during the procedure. Vital signs was monitered during the entire procedure. Using anterior-posterior fluoroscopy, the L5-S1 interlaminar space was identified and the skin over this site was marked and then infiltrated with 1% lidocaine subcutaneously. Subsequently, a 20-gauge Tuohy epidural needle was inserted and advanced toward the epidural space using the ``Loss of resistance technique and guided by AP and lateral fluoroscopy. The correct needle position in the epidural space was verified with the injection of 2 mL of the water soluble contrast dye Isovue 200 contrast and observing an excellent epidurogram with the epidural spread of the dye, after negative aspiration for blood and CSF and in the absence of paresthesias. Again after negative aspiration, a 6 ml mixture containing 40 mg of Depo-medrol ( Preservetive Free ), and 2 ml of preservative free Normal Saline, and 2 ml of preservative free lidocaine 1% solution was injected and a washout of epidurogram was seen. Needle was withdrawn intact, skin was cleansed, and bandages were applied. COMPLICATIONS: None DISPOSITION / PLANS: The patient was placed in a supine position and transferred to the recovery area in a stable condition for observation. There was no e vidence of lower extremity motor or sensory deficit after the procedure. Patient was discharged from the recovery room after meeting discharge criteria. Home discharge instructions were given to the patient by the staff. The patient was reexamined prior to discharge. The patient will schedule a follow up in the clinic in 2-4 weeks.
--- NOTE | 2023-05-21 10:26 | FL ---
Intraoperative/procedural fluoroscopic services were provided for lumbar pain management injection. T otal fluoroscopy time is 2.7 seconds with a total of 1 submitted image to PACS. Total DAP 0.09872 mGy m2. Please see the operative note for further details.
[2023-05-21 10:38] VITALS: BP 125/69; PULSE 57
[2023-05-21 10:39] VITALS: RESP 15
== END 2023-05-21 10:33 | disposition home or self-care (01) ==
LOC: ORPAIN 09:21
PROVIDERS: ATTEND Specialist
DX: M51.16 Intervertebral disc disorders with radiculopathy, lumbar region (principal); M47.26 Other spondylosis with radiculopathy, lumbar region; Z79.82 Long term (current) use of aspirin
CPT/HCPCS: 62323; J1030; Q9966

== ENCOUNTER → 2023-06-12 | Outpatient (CLI) | payer MEDICARE ==
[2023-06-12 11:30] VITALS: BP 126/64; PULSE 85; RESP 16; TEMP 97.8
--- NOTE | 2023-06-12 14:56 | P.PAINPG ---
PQRS Measure Charge Sheet Comment: A 82 yr old male with a history of severe and chronic low back pain secondary to lumbar DDD and spondylosis with facet arthropathy without myelopathy presents today for evaluation s/p MAGALY L5-S1 #1. Pt states he experienced 50% pain relief x 2-3 wks s/p procedure. Pt no longer has shooting pain past his knees. Pain level is currently at 6/10 in intensity w provocation, constant, localized in the lower lumbar spine, achy in character w shooting towards the R thigh up to the knee. Pain is provoked w sitting for periods of 30 min or more. Pain is alleviated with PT years ago which was ineffective, physician guided home stretching regimen every morning x 3 yrs, medications, walking and rest. Oswestry axial pain score of 6. Interventional pain procedures completed include MAGALY L5-S1 x2, R Trochanteric injection x2 Patient is currently on Neurontin Patient denies any side effects of the medication(s), denies excessive drowsiness or sleepiness, denies suicidal ideation and reports that the current pain medication is helping to control the pain and improve activities of daily living. Patient denies any motor or sensory deficits. Patient denies any fever or night sweats, denies any change in the bowel movements or urination. Physical Examination: -Constitutional: Cooperative. Not in acute distress . - Neurologic: Cranial nerve II to XII intact. No focal neurological deficits. - Psychatric: Alert & oriented x 3. Matching mood & appropriate affect. Judgment and insight intact. - Musculoskeletal: Cervical spine: Muscle bulk/ tone/ strength in the bilateral upper extremities normal Vertebral body tenderness to palpation over Spurling test positive Distraction test positive Facet loading test positive Thoracic spine Muscle bulk / tone/ strength in the bilateral paraspinal muscles normal Vertebral body tender to palpation over Facet loading test positive Lumbar spine: Motor bulk/ tone/ strength lower extremities , thigh and legs : 5/5 Deep tendon reflexes : Normal Knee Jerk. Normal Ankle Jerk . Vertebral body tenderness to palpation over L4 Lumbar Facet Loading Test positive Straight Leg Raise: positive at 35 degrees right side/ left side Gaenslen's Test positive Sacral spine : Severe tenderness over the Sacroiliac joint: right side / left side Range of motion: Flexion of the lumbar spine <60 degrees Range of motion: Extension of the lumbar spine <20 degrees Gaenslen's Test positive Flaco test: positive right side / left side Thigh Thrust Test Sacral Thrust Test Assessment and plan: Chronic low back pain secondary to lumbar degenerative disc disease, spondylosis with facet arthropathy without myelopathy Recommendation of MAGALY L4-L5 #2. May need a series of injections for optimal pain relief. Risks, benefits of procedure discussed and patient verbalized understanding. Protocol for discontinuation/continuation of medications surrounding procedure discussed. All patient questions answered I have spent less than 30 minutes on patient care today. Dr Sotelo was available by phone for the evaluation of this patient. The time was used to review the medical records including relevant urine studies and Prescription history (MAPs), review of the available imaging, evaluation and examination of the patient, coordination of care with the medical staff and if applicable referring physicians, as well as creation of the medical record PQRS Narrative: Smoking Status Former smoker Hx Alcohol Use (MH) No Home Medications: Ambulatory Orders Simvastatin 80 mg PO HS 03/22/15 Aspirin EC [Ecotrin Low Dose] 81 mg PO HS 08/29/18 Losartan Potassium [Cozaar] 25 mg PO DAILY 08/29/18 Metoprolol Succinate (ER) [Toprol Xl] 12.5 mg PO BID 08/29/18 Pantoprazole [Protonix] 40 mg PO DAILY 08/29/18 Controlled Substance Measures - Controlled Substance Measures Is patient prescribed a controlled substance at discharge?: No
== END ==
LOC: PNWHC3 10:41
PROVIDERS: ATTEND Specialist
DX: M51.36 Other intervertebral disc degeneration, lumbar region (principal); M47.816 Spondylosis without myelopathy or radiculopathy, lumbar region; G89.29 Other chronic pain; Z87.891 Personal history of nicotine dependence; Z79.82 Long term (current) use of aspirin
CPT/HCPCS: 99211

== ENCOUNTER 2023-07-16 11:08 | Day surgery (SDC) | payer MEDICARE ==
[2023-07-01 14:00] VITALS: BMI 28.0
[2023-07-16 11:56] VITALS: TEMP 97.3
[2023-07-16] MEDS ORDERED: methylPREDNISolone ACETATE 40 MG/ML 1 ML VIAL ONE (12:07)
[2023-07-16] MEDS ORDERED: IOPAMIDOL M200 10 ML VIAL ONE (12:07)
--- NOTE | 2023-07-16 12:12 | P.PCN ---
Date of Procedure: 07/16/23 Operative Findings: PREOPERATIVE DIAGNOSIS: lumbar radiculopathy POSTOPERATIVE DIAGNOSIS: Lumbar radiculopathy PROCEDURE 1. Lumbar epidural steroid injection under fluoroscopic guidance at the L4-L5 level. 2. Lumbar epidurogram. Imaging: Fluoroscopy was used, images where saved to the medical record ANESTHESIA: Local only EBL: Minimal PROCEDURE INDICATION: The patient with low back pain and radiculitis symptoms unresponsive to conservative treatment. Fluoroscopy was used to optimize visualization of the needle placement and to maximize safety. PROCEDURE DESCRIPTION / TECHNIQUE: The patient was seen and identified in the preoperative area. Risks, benefits, complications including but not limited to infections, bleeding, allergic reaction to medications, nerve damage and incomplete pain relief, as well as alternatives to the procedure were discussed with the patient. The patient agreed to proceed with the procedure and signed the consent. IV was started if indicated above, and vital signs were stable. Patient was taken to the OR and time out was completed. The patient was placed in the prone position on procedure table and a pillow was placed under the abdomen to reduce lumbar lordosis. The lumbosacral area was prepped and draped in the usual sterile fashion. Vitals were closely monitored during the procedure. Using anterior-posterior fluoroscopy, the L4-L5 interlaminar space was identified and the skin over this site was marked and then infiltrated with 1% lidocaine subcutaneously. Subsequently, a 20-gauge Tuohy epidural needle was inserted and advanced toward the epidural space using the Loss of resistance technique and guided by AP and lateral fluoroscopy. The correct needle position in the epidural space was verified with the injection of 1 mL of Omnipaque 180 contrast to observe an acceptable epidurogram, after negative aspiration for blood and CSF and in the absence of paresthesias. Again after negative aspiration, a 3 ml mixture containing 40mg of depomedrol and 2 ml of preservative free Normal Saline was injected and a washout of epidurogram was seen. Needle was withdrawn intact, skin was cleansed, and bandages were applied. COMPLICATIONS: None DISPOSITION / PLANS: The patient was placed in a supine position and transferred to the recovery area in a stable condition for observation. There was no evidence of lower extremity motor or sensory deficit after the procedure. Patient was discharged from the recovery room after meeting discharge criteria. Home discharge instructions were given to the patient by the staff. The patient was reexamined prior to discharge. The patient will follow up as directed.
[2023-07-16 12:21] VITALS: RESP 17
--- NOTE | 2023-07-16 12:27 | FL ---
EXAMINATION TYPE: FL guided pain mgmt statistic DATE OF EXAM: 07/16/2023 HISTORY: Fluoroscopy time Total dose area product (DAP) in uGy*m?, mGy*cm? (or similar): 0.77404 IMPRESSION: 1. Fluoroscopy time.
[2023-07-16 12:46] VITALS: BP 118/69; PULSE 78
== END 2023-07-16 12:30 | disposition home or self-care (01) ==
LOC: ORPAIN 11:08
PROVIDERS: ATTEND Hospitalist
DX: M54.16 Radiculopathy, lumbar region (principal)
CPT/HCPCS: 62323; J1030; Q9966

== ENCOUNTER → 2023-09-10 | Outpatient (CLI) | payer MEDICARE ==
[2023-09-10 11:35] VITALS: BP 130/75; PULSE 98; RESP 15; TEMP 98.5
--- NOTE | 2023-09-10 14:21 | P.PAINPG ---
PQRS Measure Charge Sheet Comment: A 83 yr old male with a history of severe and chronic low back pain secondary to lumbar DDD and spondylosis with facet arthropathy without myelopathy presents today for evaluation s/p MAGALY L4-L5 #1. Pt states he experienced 40% pain relief x 7 wks s/p procedure. Pain level is currently at 3/10 in intensity w provocation, constant, localized in the lower lumbar spine, achy in character w shooting towards the R knee. Pain is provoked w sitting while driving for periods > 30 min. Pain is alleviated with PT years ago which was ineffective, physician guided home stretching regimen every morning x 3 yrs, medications, walking and rest. Oswestry axial pain score of 6. Interventional pain procedures completed include MAGALY L5-S1 x2, MAGALY L4-L5 x1 R Trochanteric injection x2 Patient is currently on Neurontin Patient denies any side effects of the medication(s), denies excessive drowsiness or sleepiness, denies suicidal ideation and reports that the current pain medication is helping to control the pain and improve activities of daily living. Patient denies any motor or sensory deficits. Patient denies any fever or night sweats, denies any change in the bowel movements or urination. Physical Examination: -Constitutional: Cooperative. Not in acute distress . - Neurologic: Cranial nerve II to XII intact. No focal neurological deficits. - Psychatric: Alert & oriented x 3. Matching mood & appropriate affect. Judgment and insight intact. - Musculoskeletal: Cervical spine: Muscle bulk/ tone/ strength in the bilateral upper extremities normal Vertebral body tenderness to palpation over Spurling test positive Distraction test positive Facet loading test positive Thoracic spine Muscle bulk / tone/ strength in the bilateral paraspinal muscles normal Vertebral body tender to palpation over Facet loading test positive Lumbar spine: Motor bulk/ tone/ strength lower extremities , thigh and legs : 5/5 Deep tendon reflexes : Normal Knee Jerk. Normal Ankle Jerk . Vertebral body tenderness to palpation over L4 Lumbar Facet Loading Test positive Straight Leg Raise: positive at 35 degrees right side/ left side Gaenslen's Test positive Sacral spine : Severe tenderness over the Sacroiliac joint: right side / left side Range of motion: Flexion of the lumbar spine <60 degrees Range of motion: Extension of the lumbar spine <20 degrees Gaenslen's Test positive Flaco test: positive right side / left side Thigh Thrust Test Sacral Thrust Test Assessment and plan: Chronic low back pain secondary to lumbar degenerative disc disease, spondylosis with facet arthropathy without myelopathy Recommendation of medication management w short course of Tylenol #3 #18 NR to use as needed. Use, side effects, adverse reactions and safe storage discussed. All patient questions answered I have spent less than 30 minutes on patient care today. Dr Sotelo was available by phone for the evaluation of this patient. The time was used to review the medical records including relevant urine studies and Prescription history (MAPs), review of the available imaging, evaluation and examination of the patient, coordination of care with the medical staff and if applicable referring physicians, as well as creation of the medical record PQRS Narrative: Smoking Status Former smoker Hx Alcohol Use (MH) No Home Medications: Ambulatory Orders Simvastatin 80 mg PO HS 03/22/15 Aspirin EC [Ecotrin Low Dose] 81 mg PO HS 08/29/18 Losartan Potassium [Cozaar] 25 mg PO DAILY 08/29/18 Metoprolol Succinate (ER) [Toprol Xl] 12.5 mg PO BID 08/29/18 Pantoprazole [Protonix] 40 mg PO DAILY 08/29/18 Acetaminophen-Codeine 300-30mg [Tylenol w/codeine #3] 1 tab PO Q4H PRN 3 Days #18 tablet 09/10/23 Controlled Substance Measures - Controlled Substance Measures Is patient prescribed a controlled substance at discharge?: Yes When asked, does pt state using other controlled substances?: No If prescribed controlled substance>3 days was MAPS reviewed?: Prescribed <3 Days
== END ==
LOC: PNWHC3 09-05 10:48
PROVIDERS: ATTEND Specialist
DX: M51.36 Other intervertebral disc degeneration, lumbar region (principal); M47.816 Spondylosis without myelopathy or radiculopathy, lumbar region; G89.29 Other chronic pain; Z87.891 Personal history of nicotine dependence; Z79.82 Long term (current) use of aspirin
CPT/HCPCS: 99211

== ENCOUNTER 2025-01-07 13:12 | Emergency (ER) | payer MEDICARE ==
[2025-01-07 13:24] VITALS: RESP 18; TEMP 97.3
--- NOTE | 2025-01-07 13:39 | ED ---
Nausea/Vomiting/Diarrhea HPI - General Chief complaint: Nausea/Vomiting/Diarrhea Stated complaint: Diarrhea Time Seen by Provider: 01/07/25 13:38 Source: patient, family (), RN notes reviewed Mode of arrival: ambulatory Limitations: no limitations - History of Present Illness Initial comments: 84-year-old male accompanied by his presented to ER for evaluation of diarrhea. reports since Saturday patient has had persistent diarrhea along with lower abdominal cramping. He denies any hematochezia or melena. Patient reports he will experience a lower abdominal cramping prior to bouts of diarrhea. He denies any fevers, chills, nausea or vomiting. Patient contacted PCP, Dr. Childress, who advised on crackers, Gatorade and Imodium. Patient states he did consume this and Imodium did not appear to help. Patient reports continued symptoms which prompted emergency department visit. He states he is starting to feel weak. 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 reports she had similar symptoms on Saturday her symptoms have resolved. Denies any urinary complaints, chest pain, shortness of breath, dizziness, lightheadedness or other complaints at this time. - Related Data Home Medications Medication Instructions Recorded Confirmed Simvastatin 80 mg PO HS 03/22/15 07/16/23 Aspirin EC [Ecotrin Low Dose] 81 mg PO HS 08/29/18 07/16/23 Losartan Potassium [Cozaar] 25 mg PO DAILY 08/29/18 07/16/23 Metoprolol Succinate (ER) [Toprol 12.5 mg PO BID 08/29/18 07/16/23 Xl] Pantoprazole [Protonix] 40 mg PO DAILY 08/29/18 07/16/23 Previous Rx's Medication Instructions Recorded Acetaminophen-Codeine 300-30mg 1 tab PO Q4H PRN 3 Days #18 tablet 09/10/23 [Tylenol w/codeine #3] Allergies Allergy/AdvReac Type Severity Reaction Status Date / Time No Known Allergies Allergy Verified 01/07/25 13:24 Review of Systems ROS Statement: Those systems with pertinent positive or pertinent negative responses have been documented in the HPI. ROS Other: All systems not noted in ROS Statement are negative. Past Medical History Past Medical History: Deep Vein Thrombosis (DVT), GERD/Reflux, Hyperlipidemia, Hypertension, Musculoskeletal Disorder Additional Past Medical History / Comment(s): DVT 2002. increased lower Back pain, Lumbar DDD. 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 Absent: respiratory distress, wheezes, rales, rhonchi, stridor Cardiovascular Exam: Present: regular rate, normal rhythm, normal heart sounds. Absent: systolic murmur, diastolic murmur, rubs, gallop, clicks GI/Abdominal exam: Present: soft, tenderness (LLQ- mild), normal bowel sounds Extremities exam: Present: normal inspection, full ROM, normal capillary refill. Absent: tenderness, pedal edema, joint swelling, calf tenderness Neurological exam: Present: alert, oriented X3, CN II-XII intact Skin exam: Present: warm, dry, intact, normal color. Absent: rash Course Vital Signs 01/07/25 01/07/25 13:19 17:04 Temperature 97.3 F L Pulse Rate 58 L 59 L Respiratory 18 18 Rate Blood Pressure 120/42 144/59 O2 Sat by Pulse 98 97 Oximetry Medical Decision Making - Medical Decision Making Was pt. sent in by a medical professional or institution (, PA, ADOLESCENT SPECIALIST, urgent c are, hospital, or halfway...) When possible be specific @ -No Did you speak to anyone other than the patient for history (EMS, parent, family, police, friend...)? What history was obtained from this source @ -Patient's , at bedside, aiding in HPI and past medical history. Did you review nursing and triage notes (agree or disagree)? Why? @ -I reviewed and agree with nursing and triage notes Were old charts reviewed (outside hosp., previous admission, EMS record, old EKG, old radiological studies, urgent care reports/EKG's, halfway records)? Report findings @ -No old charts were reviewed Differential Diagnosis (chest pain, altered mental status, abdominal pain women, abdominal pain men, vaginal bleeding, weakness, fever, dyspnea, syncope, headache, dizziness, GI bleed, back pain, seizure, CVA, palpatations, mental health, musculoskeletal)? @ -Differential Abdominal Pain Men:Appendicitis, cholecystitis, diverticulosis, ischemic bowel, pancreatitis, hepatitis, UTI, gastroenteritis, AAA, incarcerated hernia, bowel obstruction, constipation, inflammatory bowel, hepatitis, peptic ulcer disease, splenic infarction, perforated viscus, testicular torsion, this is not meant to be an all-inclusive list EKG interpreted by me (3pts min.). @ -As above X-rays interpreted by me (1pt min.). @ -None done CT interpreted by me (1pt min.). @ -CT abdomen pelvis showing moderate diverticulosis no evidence of acute diverticulitis. Multiple stable soft tissue nodules in the anterior midline abdomen and left upper quadrant presumably stable splenule's. 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 Stable 13.5 exophytic cyst of left kidney. No definite acute changes U/S interpreted by me (1pt. min.). @ -None done What testing was considered but not performed or refused? (CT, X-rays, U/S, labs)? Why? @ -None What meds were considered but not given or refused? Why? @ -None Did you discuss the management of the patient with other professionals (professionals i.e. , PA, ADOLESCENT SPECIALIST, lab, RT, psych nurse, social worker health services, vacuum kettle cook, teacher, logistics supply officer, case management specialist)? Give summary @ -No Was smoking cessation discussed for >3mins.? @ -No Was critical care preformed (if so, how long)? @ -No Were there social determinants of health that impacted care today? How? (Homelessness, low income, unemployed, alcoholism, drug addiction, tra nsportation, low edu. Level, literacy, decrease access to med. care, residential, rehab)? @ -No Was there de-escalation of care discussed even if they declined (Discuss DNR or withdrawal of care, Hospice)? DNR status @ -No What co-morbidities impacted this encounter? (DM, HTN, Smoking, COPD, CAD, Cancer, CVA, ARF, Chemo, Hep., AIDS, mental health diagnosis, sleep apnea, morbid obesity)? @ -Advanced age, history of splenectomy Was patient admitted / discharged? Hospital course, mention meds given and route, prescriptions, significant lab abnormalities, going to OR and other pertinent info. @ -Discharge. 84-year-old male presenting to the ER for evaluation of diarrhea. Vital signs stable. Patient in no signs of acute distress nontoxic- appearing. Laboratory studies obtained unimpressive. Given lower abdominal tenderness CT abdomen pelvis was performed showing no acute process. Patient provided with IV fluid bolus in the emergency department. Patient unable to provide urine sample, and refused cathertization. Reevaluation, patient sitting on side of stretcher no signs of acute distress. Patient denies any reoccurring bouts of diarrhea while in the emergency department. Patient and patient's educated on today's findings. CT results including cyst, penile implant possible rupture and diverticulosis discussed with patient. He states he is aware of penile implant rupture. Patient tolerating oral intake. Patient will be discharged in stable condition with a Lomotil starter pack. Advised continue fluid intake and close follow-up with PCP. Strict return parameters discussed. Patient and patient's verbally expressed understanding and agreed with the plan. Case discussed with ED attending, Dr. Leong. Undiagnosed new problem with uncertain prognosis? @ -No Drug Therapy requiring intensive monitoring for toxicity (Heparin, Nitro, Insuli n, Cardizem)? @ -No Were any procedures done? @ -No Diagnosis/symptom? @ -Diarrhea Acute, or Chronic, or Acute on Chronic? @ -Acute Uncomplicated (without systemic symptoms) or Complicated (systemic symptoms)? @ -Uncomplicated Side effects of treatment? @ -No Exacerbation, Progression, or Severe Exacerbation? @ -No Poses a threat to life or bodily function? How? (Chest pain, USA, CT, pneumonia, PE, COPD, DKA, ARF, appy, cholecystitis, CVA, Diverticulitis, Homicidal, Suicidal, threat to staff... and all critical care pts) @ -Low - Lab Data Result diagrams: 01/07/25 13:58 01/07/25 13:58 Lab Results 01/07/25 01/07/25 01/07/25 Range/Units 13:58 13:58 13:58 WBC 7.32 (4.50-10.00) 10*3/uL RBC 4.22 L (4.40-5.60) 10*6/uL Hgb 13.6 (13.0-17.0) g/dL Hct 39.3 L (39.6-50.0) % MCV 93.1 (80.0-97.0) fL MCH 32.2 H (27.0-32.0) pg MCHC 34.6 (32.0-37.0) g/dL Plt Count 231 (140-440) 10*3/uL MPV 10.7 (9.5-12.2) fL Immature Gran % (Auto) 0.1 % Neutrophils % 53.1 % Lymphocytes % 28.4 % Monocytes % 15.7 % Eosinophils % 2.2 % Basophils % 0.5 % Immature Gran # 0.01 (0.00-0.04) 10*3/uL Neutrophils # 3.88 (1.80-7.70) 10*3/uL Lymphocytes # 2.08 (0.90-5.00) 10*3/uL Monocytes # 1.15 H (0.20-1.00) 10*3/uL Eosinophils # 0.16 (0.04-0.35) 10*3/uL Basophils # 0.04 (0.00-0.10) 10*3/uL Sodium 137 (137-145) mmol/L Potassium 3.5 (3.5-5.1) mmol/L Chloride 99 (98-107) mmol/L Carbon Dioxide 26 (22-30) mmol/L Anion Gap 12 mmol/L BUN 20 (9-20) mg/dL Creatinine 1.27 H (0.66-1.25) mg/dL Est GFR (CKD-EPI)AfAm 60 (>60 ml/min/1.73 sqM) Est GFR (CKD-EPI)NonAf 52 (>60 ml/min/1.73 sqM) Glucose 106 H (74-99) mg/dL Plasma Lactic Acid Billy 1.3 (0.7-2.0) mmol/L Calcium 8.6 (8.4-10.2) mg/dL Total Bilirubin 0.7 (0.2-1.3) mg/dL AST 25 (17-59) U/L ALT 15 (4-49) U/L Alkaline Phosphatase 71 (38-126) U/L Total Protein 6.4 (6.3-8.2) g/dL Albumin 3.7 (3.5-5.0) g/dL Lipase 120 (23-300) U/L - EKG Data -: EKG Interpreted by Me EKG Comments: EKG taken at 14: 25 showing sinus bradycardia with first-degree AV block. Occasional ectopic beat. No ST segment elevations or depressions. Inverted T waves lead III. Ventricular rate 75, SC interval 255, QRS duration 101, QT/QTc 430/423. - Radiology Data Radiology results: report reviewed, image reviewed Disposition Clinical Impression: Diarrhea Disposition: HOME SELF-CARE Condition: Stable Instructions (If sedation given, give patient instructions): Acute Diarrhea (ED) Additional Instructions: Drink plenty of fluids. Follow-up closely with PCP. Return to the ER for any new or worsening concerns. Is patient prescribed a controlled substance at d/c from ED?: No Referrals: Oleg Childress MD [Primary Care Provider] - 1-2 days Time of Disposition: 17:12
[2025-01-07 14:18] LABS: Basophils # (A) 0.04 10*3/uL (0.00-0.10); Basophils % (A) 0.5 %; Eosinophils # (A) 0.16 10*3/uL (0.04-0.35); Eosinophils % (A) 2.2 %; HCT 39.3 % (39.6-50.0); HGB 13.6 g/dL (13.0-17.0); Lymphocytes # (A) 2.08 10*3/uL (0.90-5.00); Lymphocytes % (A) 28.4 %; MCH 32.2 pg (27.0-32.0); MCHC 34.6 g/dL (32.0-37.0); MCV 93.1 fL (80.0-97.0); Mean Platelet Volume 10.7 fL (9.5-12.2); Monocytes # (A) 1.15 10*3/uL (0.20-1.00); Monocytes % (A) 15.7 %; Neutrophils # (A) 3.88 10*3/uL (1.80-7.70); Neutrophils % (A) 53.1 %; Platelet Count 231 10*3/uL (140-440); RBC 4.22 10*6/uL (4.40-5.60); RDW 13.7 % (11.5-14.5); WBC 7.32 10*3/uL (4.50-10.00)
[2025-01-07 14:40] LABS: ALT 15 U/L (4-49); AST 25 U/L (17-59); African American GFR (CKD) 60 (>60 ml/min/1.73 sqM); Albumin 3.7 g/dL (3.5-5.0); Alkaline Phosphatase 71 U/L (38-126); Anion Gap 12 mmol/L; Blood Urea Nitrogen 20 mg/dL (9-20); Calcium 8.6 mg/dL (8.4-10.2); Carbon Dioxide 26 mmol/L (22-30); Chloride 99 mmol/L (98-107); Glucose 106 mg/dL (74-99); Lipase 120 U/L (23-300); Non-African American GFR(CKD) 52 (>60 ml/min/1.73 sqM); Potassium 3.5 mmol/L (3.5-5.1); Sodium 137 mmol/L (137-145); Total Bilirubin 0.7 mg/dL (0.2-1.3); Total Protein 6.4 g/dL (6.3-8.2)
[2025-01-07] MEDS: SODIUM CHLORIDE 0.9% 1,000 ML IV ONE (14:45)
--- NOTE | 2025-01-07 16:33 | CT ---
EXAMINATION TYPE: CT abdomen pelvis w con DATE OF EXAM: 01/07/2025 COMPARISON: 05/13/2020 CLINICAL INDICATION: Male, 84 years old with history of diarrhea/lower abd pain; PHH, diarrhea TECHNIQUE: Performed without Oral Contrast and with IV Contrast, patient injected with 80 ml mL of Isovue 300. CT DLP: [address] CTDI: mGy Automated exposure control for dose reduction was used. FINDINGS: The lung bases are clear. There is surgical absence of the gallbladder. There is no biliary ductal dilatation. There is no focal mass or organomegaly involving liver, pancreas or adrenal glands. The spleen is not identified with certainty. There are multiple stable soft tissue nodules in the anterior mesentery a nd left upper quadrant which could represent splenules. There is no solid renal mass or hydronephrosis and there is homogeneous contrast enhancement of the r enal parenchyma. There is a 13.5 cm exophytic cyst of the lower pole of the left kidney. There is a 5 cm cyst of the right kidney. The caliber the abdominal aorta is normal is no retroperitoneal adenopathy or hemorrhage. The bowel loops are normal in caliber and there is no evidence of dilatation or obstruction. No infla mmatory changes are identified in the bowel wall or mesentery. There is stable moderate diverticulosi s of the descending sigmoid colon without definite evidence of acute diverticulitis There is no free intraperitoneal air or fluid. No pelvic mass, free fluid, abscess or adenopathy. 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 The reservoir along the right aspect of the urinary bladder appears collapsed, possibly ruptured. The osseous structures and soft tissues are intact. IMPRESSION: 1. No change in the moderate diverticulosis but no evidence of acute ventriculitis. 2. Multiple stable soft tissue nodules in the anterior midline abdomen and left upper quadrant presum ably stable splenules. 3. 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 4. Stable 13.5 cm exophytic cyst of the left kidney. 5. No definite acute changes within the abdomen or pelvis. [facility], , 01/07/2025 4:30 PM
[2025-01-07 17:05] VITALS: BP 144/59; PULSE 59
[2025-01-07] MEDS: DIPHENOX-ATROP STARTER PACK 8 TAB BTL PO STA (17:25)
== END 2025-01-07 17:25 | disposition home or self-care (01) ==
LOC: EC 13:12
DX: K57.30 Diverticulosis of large intestine without perforation or abscess without bleeding (principal); N28.1 Cyst of kidney, acquired; I44.0 Atrioventricular block, first degree; R00.1 Bradycardia, unspecified; Z87.891 Personal history of nicotine dependence; Z90.81 Acquired absence of spleen
CPT/HCPCS: 99284; 96360; 96361 ×2; 36415; 93005; 80053; 83605; 83690; 85025; 74177; Q9967